=== PATIENT | female | born 1960 | race African-American/Black ===

== ENCOUNTER 2021-03-30 10:21 | Emergency (ER) | payer OTHER, SELFPAY ==
[2021-03-30 10:33] VITALS: BP 127/108; PULSE 87; RESP 16; TEMP 36.4; O2SAT 99
--- NOTE | 2021-03-30 10:51 | ED.LOWEXIN ---
HPI - Extremity Injury (Lower) General Chief Complaint: Extremity Injury, Lower Stated Complaint: left leg/knee swelling Time Seen by Provider: 03/30/21 10:51 Source: patient Mode of arrival: ambulatory Limitations: no limitations History of Present Illness HPI Narrative: Darleen Valle is a 60 female with no known PMH who comes to [facility] with tightness in her left leg around her knee. Says started few days ago, there is no localized area of swelling, she is also concerned that on being checked and her blood pressure is elevated-she has not been to a primary care physician for couple years Related Data Allergies Allergy/AdvReac Type Severity Reaction Status Date / Time No Known Allergies Allergy Verified 03/30/21 10:50 Review of Systems Review of Systems: CONSTITUTIONAL: Denies fever, chills, sweats. EYES: Denies visual changes, redness, discharge. ENT: Denies rhinorrhea, congestion, sore throat, otalgia. CARDIOVASCULAR: Denies chest pain, palpitations, edema. RESPIRATORY: Denies dyspnea, wheezing, cough GASTROINTESTINAL: Denies abdominal pain, nausea, vomiting, diarrhea. GENITOURINARY: Denies dysuria, hematuria, abnormal discharge SKIN: Denies rash or itching. NEUROLOGIC: Denies numbness, or focal weakness. PSYCHIATRIC: Denies anxiety or depression. Left leg pain and tightness around knee PMFSH Past Medical History Medical History No acute medical problems Social History Social History (Updated 03/30/21 @ 11:01 by Terra Flores CNP) Smoking status: Never smoker Alcohol intake: current Comments At time of signature, I agree with nursing past medical, surgical, social and family history. There is no relevant family history pertinent to the presenting complaint. Patient's blood pressure is elevated at this visit and she is to follow-up with her primary care physician within the week. List was given for additional doctors to try and get appointment Exam Narrative: GENERAL: This is a well-nourished, well-developed patient, in mild distress. HEAD: normocephalic, atraumatic. EYES: Sclera clear/white. Vision is grossly intact. EARS: External ears normal, auditory canals clear and without drainage, TMs normal without perforation. Hearing grossly intact. NOSE: External nose normal without nasal discharge, nares without redness, no rhinorrhea. THROAT: Mucous membranes moist, NECK: Neck supple, CARDIOVASCULAR: Regular rate and rhythm without murmurs, gallops, or rubs. RESPIRATORY: Clear to auscultation. Breath sounds equal bilaterally. No wheezes, rales, or rhonchi. GASTROINTESTINAL: Abdomen soft, SKIN: warm, intact with no suspicious lesions or rash, good texture and turgor. NEURO: awake, alert, and oriented to person, place and time. There were no obvious focal neurologic abnormalities. Steady gait EXTREMITIES: Normal range of motion. She complains of tightness behind her left knee but there is no swelling no erythema no warmth to either calf or behind the knee. Her left knee appears slightly swollen on the medial side BACK: Nontender without deformity Course Course Emergency Course: Patient comes with a vague complaint of tightness in her left leg around the back of the knee; denies injury but patient is wearing socks with slide sandals; Discussed her elevated blood pressure and the possibility of an minor injury to her knee given her choice of footwear. Using an Blade wrap and elevation and ice are ibuprofen over the weekend, she needs to follow-up with primary care because she has elevated blood pressure and was given a sheet of physicians accepting patients at this time Vital Signs Vital signs: Vital Signs Temperature 97.6 F 03/30/21 10:33 Pulse Rate 87 03/30/21 10:33 Respiratory Rate 16 03/30/21 10:33 Blood Pressure 127/108 H 03/30/21 10:33 Pulse Oximetry 99 03/30/21 10:33 Temperature 97.6 F 03/30/21 10:33 Pulse Rate 87
== END 2021-03-30 11:15 | disposition home or self-care (01) ==
PROVIDERS: Emergency Provider Nurse Practitioner
DX: R03.0 Elevated blood-pressure reading, without diagnosis of hypertension (principal); M25.562 Pain in left knee
CPT/HCPCS: 99212; G0463